=== PATIENT | male | born 1985 | race Caucasian/White ===

== ENCOUNTER 2021-08-29 21:40 | Emergency (ER) | payer MEDICAID, OTHER ==
[~2021-08-29] VITALS: Ht 177.8 cm; Wt 65.8 kg
[2021-08-29] MEDS ORDERED: ONDANSETRON HCL 4 MG/2 ML VIAL IV ONE (22:00)
[2021-08-29] MEDS ORDERED: MORPHINE SULFATE 4 MG/ML SYR/VIAL IV ONE (22:00)
[2021-08-30] MEDS ORDERED: BACITRACIN TOP OINT 1 UD PKG TOP ONE (00:07)
[2021-08-30] MEDS ORDERED: BAC09TP TOP (00:54)
[2021-08-30] MEDS ORDERED: CHL12OR MT (00:54)
[2021-08-30] MEDS ORDERED: AMOX-277 PO (00:54)
[2021-08-30 01:18] VITALS: BP 138/84
[2021-08-30] MEDS ORDERED: HYDR-4902 PO (01:52)
== END 2021-08-30 02:08 | disposition home or self-care (01) ==
LOC: ER 21:40
DX: S01.511A Laceration without foreign body of lip, initial encounter (principal); F17.210 Nicotine dependence, cigarettes, uncomplicated; W54.0XXA Bitten by dog, initial encounter; Y93.89 Activity, other specified; Y92.89 Other specified places as the place of occurrence of the external cause; Y99.8 Other external cause status
CPT/HCPCS: 12055; 96374; 96375; 99284; J2270; J2405